=== PATIENT | male | born 1975 | race Caucasian/White ===

== ENCOUNTER 2021-02-04 21:28 | Emergency (ER) | payer BC ==
[~2021-02-04] VITALS: Ht 180.3 cm; Wt 97.1 kg
[2021-02-04] MEDS ORDERED: AMLODIPINE BESY10 MG PO (22:08)
[2021-02-05] MEDS ORDERED: DICLOFENAC SODI75 MG PO (01:17)
[2021-02-05] MEDS ORDERED: HYDROCODON-ACE1 EA10 PO (01:17)
== END 2021-02-05 01:40 | disposition home or self-care (01) ==
LOC: ED 21:28
DX: R10.32 Left lower quadrant pain (principal); M79.652 Pain in left thigh; I10 Essential (primary) hypertension; Z79.899 Other long term (current) drug therapy
CPT/HCPCS: 74177; 80053; 81001; 83690; 85025; 96375; 96376; 99284-25; J1170; J2405; J7030; Q9967